=== PATIENT | female | born 1960 | race Caucasian/White ===

== ENCOUNTER → 2017-03-17 | Outpatient (CLI) | payer OTHER ==
[~2017-03-17] MED LIST: COCO1000; L-Theanine PO; LACTCAP8 PO; MAGN1TAB14 PO; MCTOIL; OMEG12002; TURM500C3 PO; VENTAER INH; VITA2000 PO; VITATAB11; [UNRECOGNIZED DRUG - CODE] PO
== END ==
LOC: CLAB 12:45
PROVIDERS: ATTEND Specialist
DX: B18.2 Chronic viral hepatitis C (principal); R94.5 Abnormal results of liver function studies; Z79.899 Other long term (current) drug therapy; Z28.3 Underimmunization status; Z13.21 Encounter for screening for nutritional disorder
CPT/HCPCS: 36415; 82140